=== PATIENT | male | born 1965 | race Caucasian/White ===

== ENCOUNTER 2017-08-16 07:45 | Day surgery (SDC) | payer OTHER ==
[~2017-08-16] VITALS: Ht 177.8 cm; Wt 79.4 kg
[~2017-08-16 07:45] MED LIST: BREO ELLIPTA I1 EACH INH; CHANTIX1 MG PO; DULOXETINE HCL60 MG PO; FLEXERIL10 MG PO; GABAPENTIN100 MG PO; IBUPROFEN800 MG PO; QUETIAPINE FUMA25 MG PO; TRAZODONE HCL50 MG PO; VICODIN 5-5001 EACH PO
[2017-08-16] MEDS ORDERED: TYLENOL WITH C1 EACH PO (07:55)
--- NOTE | 2017-08-16 11:20 | NUR ---
08/16/17 1120 Sravanthi Bill 1049 PT ARRIVED IN PACU SLEEPY. REPORT FROM ANESTHESIA. 1100 PT AWAKE WITH NO C/O'S.
--- NOTE | 2017-08-17 10:58 | OR ---
[facility] [address], [place] [address] Signed DATE OF OPERATION: 08/16/2017 SURGEON: Anabella Hardy MD PREOPERATIVE DIAGNOSIS: Maternal grandfather with colon cancer, age 70. POSTOPERATIVE DIAGNOSES: 1. A 3-7 mm polyps at 70 cm, 60 x2, 38 x4, 36 x3, 35 x1, 22 x1 and 8 cm x3. 2. Right-sided proximal diverticulosis. 3. Minimal internal hemorrhoids. PROCEDURE: Colonoscopy with hot biopsy. ESTIMATED BLOOD LOSS: None. INDICATIONS: Yamilet is a 52-year-old gentleman asked to see me for his initial colonoscopy. He explained his maternal grandfather developed colon cancer at around age 70. Yamilet says he has no lower GI complaints. I met with Yamilet in the office and I gave him a pamphlet on colonoscopy. We looked at that together along with the risks including, but not limited to, gas bloating, crampy abdominal pain, bleeding, perforation, requiring surgery, and missed diagnosis. We also discussed the need for IV conscious sedation. He requires daily narcotics along with his trazodone, quetiapine, gabapentin, Flexeril, and his duloxetine. I explained to Yamilet our simple Versed and fentanyl would be enough to put him asleep. Consequently, we had our anesthesia provider come and help us with IV infusion of propofol as well as airway control. Yamilet had expressed understanding and wished to proceed. PROCEDURE NOTE: Yamilet was taken into our endoscopy suite and placed in the left lateral decubitus position. He was given IV sedation with IV propofol per our nurse asian studies program chair. A digital rectal exam was performed and this was unremarkable. He is getting some induration to the prostate and little prominence on the left side. After this, the adult colonoscope was introduced and advanced all around into the cecum under direct visualization of camera without difficulty. His prep was good. He had several diverticula actually in the base of his cecum and near the base of the ileocecal valve. We also removed multiple small colonic polyps as we withdrew the scope. There was Electronically Signed By: ANABELLA HARDY MD 08/17/17 1058 PATIENT NAME: YAMILET DANG OPERATIVE REPORT DATE OF : 67 PHYSICIAN: ANABELLA HARDY MD REPORT #: [id number] REPORT IS CONFIDENTIAL AND NOT TO BE RELEASED WITHOUT AUTHORIZATION [facility] [address], [place] [address] Signed simply too many in his colon to remove all at one setting. They all appear small and benign. We then retroflexed the scope and we could see just a little bit of internal hemorrhoid tissue. After this, the gas was suctioned out and the colonoscope removed. Yamilet tolerated the procedure quite well. RECOMMENDATIONS: I will see Yamilet back in my office in 7 to 14 days to review his results. He should probably consider a short interval repeat endoscopy until we feel like we got most of these polyps removed, maybe in 3 months or so. MD LAINA Sunshine/KLARISSAL /[id number] cc: LAISHA Morrow MD Electronically Signed By: ANABELLA HARDY MD 08/17/17 1058 PATIENT NAME: YAMILET DANG OPERATIVE REPORT DATE OF : 67 PHYSICIAN: ANABELLA HARDY MD REPORT #: [id number] REPORT IS CONFIDENTIAL AND NOT TO BE RELEASED WITHOUT AUTHORIZATION
== END 2017-08-16 11:17 | disposition home or self-care (01) ==
LOC: DS 07:45 → OPS 07:45 → DS 09:45 → OPS 09:45
PROVIDERS: Colon & Rectal Surgery
PROC: 0DBE8ZX Excision of Large Intestine, Via Natural or Artificial Opening Endoscopic, Diagnostic (ICD-10-PCS; principal; 2017-08-16 09:45)
DX: Z12.11 Encounter for screening for malignant neoplasm of colon (principal); D12.6 Benign neoplasm of colon, unspecified; K57.30 Diverticulosis of large intestine without perforation or abscess without bleeding; K64.8 Other hemorrhoids; K62.1 Rectal polyp; J45.909 Unspecified asthma, uncomplicated; M19.90 Unspecified osteoarthritis, unspecified site; M79.7 Fibromyalgia; F90.9 Attention-deficit hyperactivity disorder, unspecified type; F31.9 Bipolar disorder, unspecified; F43.10 Post-traumatic stress disorder, unspecified; F17.210 Nicotine dependence, cigarettes, uncomplicated; Z98.52 Vasectomy status; Z98.890 Other specified postprocedural states; Z80.0 Family history of malignant neoplasm of digestive organs; Z79.899 Other long term (current) drug therapy
CPT/HCPCS: J2704; J7120

== ENCOUNTER 2017-11-15 09:55 | Day surgery (SDC) | payer OTHER ==
[~2017-11-15] VITALS: Ht 177.8 cm; Wt 79.4 kg
[~2017-11-15 09:55] MED LIST changes: +TYLENOL WITH C1 EACH PO
[2017-11-15] MEDS ORDERED: BACTRIM DS TAB1 EACH PO (10:05)
--- NOTE | 2017-11-15 11:56 | NUR ---
11/15/17 1156 Sravanthi Bill 1146 PT ARRIVED IN PACU SLEEPY WITH ORAL AIRWAY. ABD SOFT.
--- NOTE | 2017-11-15 12:59 | OR ---
[facility] [address], [place] [address] Signed DATE OF OPERATION: 11/15/2017 SURGEON: Anabella Hardy MD PREOPERATIVE DIAGNOSES: 1. Personal history of greater than 15 colonic polyps, August 2017. 2. Maternal grandmother with colon cancer in her 70s. 3. Right-sided diverticulosis. 4. Internal hemorrhoids. POSTOPERATIVE DIAGNOSES: 1. A 5 mm polyps on ileocecal valve, distal right colon, distal hepatic flexure, 35 cm, 25 cm, 20 cm, and 15 cm. All totaling 15 polyps. 2. Minimal internal hemorrhoids. PROCEDURE: Colonoscopy with hot biopsy. ESTIMATED BLOOD LOSS: None. INDICATIONS: Yamilet is a 52-year-old gentleman who came to us in August 2017, because his maternal grandmother had colon cancer in her 70s. We took out 15 polyps from Yamilet spreading from [address] down to the rectum. We also saw just a few diverticula in the right colon and some internal hemorrhoids. He had multiple adenomatous polyps and some hyperplastic polyps. I explained to Yamilet we need to have him back on a short interval to make sure we can remove any remaining polyps. In the meantime, he said he is doing great. He and his found a nice place out in [place], [place] and said that is allowed him to be much more relaxed. In the office, I had given Yamilet another pamphlet on colonoscopy and of course he is very familiar with that. He understands there is risk including, but not limited to gas bloating, crampy abdominal pain, bleeding, perforation, requiring surgery, and missed diagnosis. He also understands the need for IV conscious sedation. He has been through a lot with various injuries and he requires Tylenol with Codeine, His trazodone, quetiapine, gabapentin, Flexeril, and his duloxetine. As a result, We had used an anesthesia provider previously and we went ahead and ordered that again for this occasion. It worked out quite nicely for him. He had expressed understanding and wished to proceed. PROCEDURE NOTE: Electronically Signed By: ANABELLA HARDY MD 11/15/17 1259 PATIENT NAME: YAMILET DANG OPERATIVE REPORT DATE OF : 67 REPORT #: [id number] PHYSICIAN: ANABELLA HARDY MD PCP: KENDELL BLAS REPORT IS CONFIDENTIAL AND NOT TO BE RELEASED WITHOUT AUTHORIZATION [facility] [address] [place] [id number] Signed Yamilet was taken into our endoscopy suite and placed in the left lateral decubitus position. He was given IV sedation with propofol per our nurse cooler supervisor. A digital rectal exam was performed and this was unremarkable. The adult colonoscope was then introduced and advanced all around into the cecum under direct visualization of camera without difficulty. The scope was then slowly withdrawn. The above-mentioned polyps were easily removed with the help of hot biopsy forceps. As expected, these polyps were 5 mm or less in size. His greatest concentration is right around 15 cm in the rectum, which is quite common. Also upon retroflexion of scope, he does have a minimal internal hemorrhoids. I did not specifically see the diverticula in the right colon on this occasion. At this point, the gas was suctioned out and the colonoscope was removed. Yamilet tolerated the procedure quite well. RECOMMENDATIONS: I will see Yamilet back in my office in 7 to 14 days to review his results. He should probably return on another shorter interval maybe within 2 or 3 years with the most. Anabella Hardy MD ALB/MODL /[id number] cc: LAISHA Morrow MD Copies: KENDELL BLAS ANDREW L MD ~ Electronically Signed By: ANABELLA HARDY MD 11/15/17 1259 PATIENT NAME: YAMILET DANG OPERATIVE REPORT DATE OF : 67 REPORT #: [id number] PHYSICIAN: ANABELLA HARDY MD PCP: KENDELL BLAS REPORT IS CONFIDENTIAL AND NOT TO BE RELEASED WITHOUT AUTHORIZATION
== END 2017-11-15 12:22 | disposition home or self-care (01) ==
LOC: OPS 09:55 → DS 09:55 → OPS 11:15 → DS 11:15 → OPS 12:22
PROVIDERS: Colon & Rectal Surgery
PROC: 0DBE8ZZ Excision of Large Intestine, Via Natural or Artificial Opening Endoscopic (ICD-10-PCS; 2017-11-15)
PROC: 0DBL8ZZ Excision of Transverse Colon, Via Natural or Artificial Opening Endoscopic (ICD-10-PCS; 2017-11-15)
PROC: 0DBP8ZZ Excision of Rectum, Via Natural or Artificial Opening Endoscopic (ICD-10-PCS; principal; 2017-11-15 11:15)
DX: D12.3 Benign neoplasm of transverse colon (principal); D12.8 Benign neoplasm of rectum; K63.5 Polyp of colon; K64.8 Other hemorrhoids; J45.909 Unspecified asthma, uncomplicated; F43.10 Post-traumatic stress disorder, unspecified; M19.90 Unspecified osteoarthritis, unspecified site; M79.7 Fibromyalgia; F90.9 Attention-deficit hyperactivity disorder, unspecified type; F31.9 Bipolar disorder, unspecified; F17.210 Nicotine dependence, cigarettes, uncomplicated; Z86.010 Personal history of colon polyps; Z80.0 Family history of malignant neoplasm of digestive organs; Z79.899 Other long term (current) drug therapy; Z98.890 Other specified postprocedural states
CPT/HCPCS: J2704; J7120